=== PATIENT | male | born 1965 | race Caucasian/White ===

== ENCOUNTER 2023-12-30 09:40 | Emergency (ER) | payer BC, SELFPAY ==
--- NOTE | ~2023-12-30 | XR_ITS ---
EXAMINATION: XR hand RT min 3V INDICATION: Right hand pain TECHNIQUE: Four views of the right hand are obtained. COMPARISON: None available FINDINGS: Bone alignment is normal. There is no fracture. There is palmar soft tissue swelling of the hand near the metacarpophalangeal joints on the lateral view. No definite radiopaque foreign body is identified. IMPRESSION: 1. No acute osseous abnormality or evidence of radiopaque foreign body. Reviewed, dictated and finalized at location [facility] [facility]
[2023-12-30 09:53] VITALS: BP 160/94; PULSE 70; RESP 16; TEMP 36.9; O2SAT 98
--- NOTE | 2023-12-30 11:10 | ED.GENADULT ---
HPI - General Adult General Chief complaint: Wound/Laceration Stated complaint: piece of wood in right palm Source: patient Mode of arrival: ambulatory Limitations: no limitations History of Present Illness HPI narrative: Patient presents for evaluation of questionable retained foreign body in the right hand. He indicates he was putting wood in through a wood splitter last night and thinks a splinter of wood went into the palmar aspect of the right hand. He attempted to remove it with a tweezers and knife, although he was unsuccessful. He has mild pain, without descriptive quality or numerical rating. No loss or ROM or paresthesias. No purulence from the area. He is right hand dominant. UTD on tetanus. He is not diabetic. Related Data Allergies Allergy/AdvReac Type Severity Reaction Status Date / Time No Known Allergies Allergy Verified 12/30/23 09:57 Review of Systems Review of Systems: CONSTITUTIONAL: Denies fever, chills, or sweats. EYES: Denies visual changes, redness, or discharge. ENT: Denies rhinorrhea, congestion, sore throat, or otalgia. CARDIOVASCULAR: Denies chest pain, palpitations, or edema. RESPIRATORY: Denies cough or dyspnea. GASTROINTESTINAL: Denies abdominal pain, nausea, vomiting, or diarrhea. GENITOURINARY: Denies dysuria or hematuria. SKIN: Reports wound to the palmar aspect of the right hand with suspected retained wood splinter. MUSCULOSKELETAL: Denies back pain, joint pain, or myalgia. NEUROLOGIC: Denies headache, numbness, dizziness, or weakness. PSYCHIATRIC: Denies anxiety or depression. PMFSH Past Medical History Medical History No pertinent past medical history Surgical History Surgical History No pertinent past surgical history Family History Family History (Updated 12/30/23 @ 11:17 by VICKEY PoonP, ) Mother Family history non-contributory Social History Social History Substance use: never Living arrangements: with family Gender identity (if verbalized by the patient): Male Spiritual care concerns: No Exam Narrative: GENERAL: Well-appearing, well-nourished, and in no acute distress. HEAD: Normocephalic, atraumatic. EYES: PERRLA and EOMI. ENT: Nares clear, no rhinorrhea or epistaxis. Mucous membranes moist. Oropharynx without tonsillar hypertrophy exudate or other lesions. Bilateral TMs pearly figueredo nonbulging NECK: Supple. No adenopathy or masses. No carotid bruits or JVD CHEST: Clear to auscultation. No respiratory distress. No wheezes rales or rhonchi HEART: Regular rate and rhythm. No murmur heard. Normal peripheral pulses. ABDOMEN: Soft, nontender, nondistended, normal active bowel sounds. EXTREMITIES: Normal range of motion. No edema. SKIN: Approximately 3mm superficial ulceration to palmar aspect of right hand NEURO: No focal deficits. Alert and oriented x3. PSYCH: Normal mood and affect. Course Course Emergency Course: This is a 58-year-old male who presented for evaluation of questionable retained foreign body in the right hand. No foreign body was visualized on x-ray and I cannot visualize with my naked eye. I advised we not make an incision for exploration due to anatomical site affected. I did offer to refer him to hand surgery, which he declined. Advised he perform warm soaks/compresses. He is UTD on tetanus. Will dc with keflex. Follow up with primary provider. Advised not to manipulate wound. Go to the ER for signs of infection. Pt in agreement with plan of care. Level of Care: Express Care Visit Vital Signs Vital signs: Vital Signs Temperature 36.9 C 12/30/23 09:53 Pulse Rate 70 12/30/23 09:53 Respiratory Rate 16 12/30/23 09:53 Blood Pressure 160/94 H 12/30/23 09:53 Pulse Oximetry 98 12/30/23 09:53 Oxygen Delivery R
== END 2023-12-30 11:00 | disposition home or self-care (01) ==
PROVIDERS: Emergency Provider Nurse Practitioner
DX: S61.401A Unspecified open wound of right hand, initial encounter (principal); X58.XXXA Exposure to other specified factors, initial encounter
CPT/HCPCS: 73130; 99213; G0463